=== PATIENT | male | born 1995 | race Caucasian/White ===

== ENCOUNTER 2022-01-20 19:35 | Emergency (ER) | payer BC ==
[2022-01-20] MEDS ORDERED: Acetaminophen/HYDROcodone 325-5 MG Tab PO ONE (19:57)
[2022-01-20] MEDS ORDERED: Ketorolac 60 MG/2 ML SDV IM ONE (19:57)
== END 2022-01-20 21:13 | disposition home or self-care (01) ==
LOC: MW.ED 19:35
DX: H72.92 Unspecified perforation of tympanic membrane, left ear (principal)
CPT/HCPCS: 99282; A9270

== ENCOUNTER 2023-07-08 14:48 | Emergency (ER) | payer BC ==
[2023-07-08] MEDS: HYDROmorphone 1 MG/ML Syringe IVPUSH ONE ×4 (15:03→15:28)
[2023-07-08] MEDS: Ondansetron 4 MG/2 ML SDV IVPUSH ONE (15:03)
[2023-07-08] MEDS: Sodium Chloride 0.9% 1,000 ML IV SCH (15:03)
[2023-07-08 15:06] LABS: BASOPHILS ABSOLUTE AUTO 0.02 K/uL (0.00-0.20); BASOPHILS PERCENT AUTO 0.2 % (0.0-1.0); EOSINOPHILS ABSOLUTE AUTO 0.08 K/uL (0.00-0.45); EOSINOPHILS PERCENT AUTO 0.8 % (0.0-6.0); HEMATOCRIT 41.7 % (42.0-52.0); IMMATURE GRAN ABSOLUTE AUTO 0.03 K/uL (0.00-0.05); IMMATURE GRAN PERCENT AUTO 0.3 % (0.0-0.4); LYMPHOCYTES ABSOLUTE AUTO 2.87 K/uL (1.00-4.80); LYMPHOCYTES PERCENT AUTO 29.8 % (24.0-44.0); MEAN CORPUSCULAR HEMOGLOBIN 29.3 pg (28.0-32.0); MEAN CORPUSCULAR VOLUME 81.4 fL (83.0-99.0); MONOCYTES ABSOLUTE AUTO 0.85 K/uL (0.00-0.80); MONOCYTES PERCENT AUTO 8.8 % (0.0-8.0); NEUTROPHILS ABSOLUTE AUTO 5.78 K/uL (1.80-7.70); NEUTROPHILS PERCENT AUTO 60.1 % (41.0-71.0); PLATELET COUNT,PLT 235 K/uL (150-400); RED BLOOD CELL COUNT 5.12 M/uL (4.52-5.90); WHITE BLOOD CELL COUNT,WBC 9.63 K/uL (3.9-11.3)
[2023-07-08] MEDS: ceFAZolin 2 GM in Sodium Chloride 0.9% 50 ML IV ONE (15:06)
[2023-07-08] MEDS: Diphtheria,Pertussis(Acell),Tetanus Vaccine 0.5 ML Syringe IM ONE (15:06)
[2023-07-08 15:23] LABS: A/G RATIO 1.4 (0.9-1.6); ALBUMIN 4.1 g/dL (3.4-5.0); BILIRUBIN TOTAL 0.7 mg/dL (0.2-1.0); CALCIUM 8.9 mg/dL (8.5-10.1); CREATININE 1.3 mg/dL (0.8-1.3); EST CRCL DRUG DOSING (CG) 91.71 mL/min; POTASSIUM,K 3.4 mmol/L (3.5-5.1); PROTEIN TOTAL,TP 7.1 g/dL (6.4-8.2)
[2023-07-08] MEDS: HYDROmorphone 2 MG/ML Syringe IVPUSH ONE (15:25)
[2023-07-08] MEDS: Lactated Ringers 1,000 ML IV ONE (15:52)
[2023-07-08] MEDS: fentaNYL 100 MCG/2 ML SDV IVPUSH ONE (15:59)
[2023-07-08] MEDS: Ketamine 500 mg/10 ML MDV IV ONE (16:36)
[2023-07-08] MEDS: fentaNYL 100 MCG/2 ML SDV ONE (16:37)
[2023-07-08] MEDS: fentaNYL 50 MCG/ML SDV IVPUSH ONE (16:38)
== END 2023-07-08 17:00 ==
LOC: MW.ED 14:48
DX: S51.802A Unspecified open wound of left forearm, initial encounter (principal); Z75.8 Other problems related to medical facilities and other health care; W34.00XA Accidental discharge from unspecified firearms or gun, initial encounter
CPT/HCPCS: 36415; 71045; 73090; 80053; 85025; 90471; 90715; 96361; 96365; 96375; 96376; 99285; G0390; J0690; J1170; J2405; J3010; J3490; J7030; J7120; 86850; 86900; 86901; 86920; 99291

== ENCOUNTER 2024-04-30 09:58 | Emergency (ER) | payer BC ==
[2024-04-30] MEDS: Famotidine 20 MG Tab PO ONE (11:21)
[2024-04-30] MEDS: methylPREDNISolone Sodium Succinate 125 MG/2 ML SDV IM ONE (11:21)
== END 2024-04-30 11:40 | disposition home or self-care (01) ==
LOC: MW.ED 09:58
DX: T78.40XA Allergy, unspecified, initial encounter (principal); F17.210 Nicotine dependence, cigarettes, uncomplicated; Z79.899 Other long term (current) drug therapy
CPT/HCPCS: 96372; 99283; A9270; J2919